=== PATIENT | male | born 2000 | race Caucasian/White ===

== ENCOUNTER 2023-08-27 15:53 | Emergency (ER) | payer MEDICAID, SELFPAY ==
[2023-08-27 15:54] VITALS: BP 129/79; PULSE 88; RESP 16; TEMP 36.7; O2SAT 98; BMI 24.7
--- NOTE | 2023-08-27 15:59 | XRR_ITS ---
PROCEDURE INFORMATION: Exam: XR Chest Exam date and time: 08/27/2023 4:15 PM Age: 23 years old Clinical indication: Patient HX: C/O chest pain; Additional info: Cp TECHNIQUE: Imaging protocol: Radiologic exam of the chest. Views: 1 view. COMPARISON: No relevant prior studies available. FINDINGS: Lungs: Unremarkable. No consolidation. Pleural spaces: Unremarkable. No pleural effusion. No pneumothorax. Heart/Mediastinum: Unremarkable. No cardiomegaly. Bones/joints: Unremarkable. XR/XR chest 1V portable [id number] IMPRESSION: No acute findings.
--- NOTE | 2023-08-27 15:59 | ECG_ITS ---
[facility] Test Date: 2023-08-27 Pat Name: Butch David Department: Room: Gender: Male Mysql Database Developer: : [id number] Requested By: Izabel Méndez Order Number: [id number] Diaz MD: Boubacar Pitts M.D. Measurements Intervals [place] Rate: 86 P: 66 [place]: 186 QRS: 22 QRSD: 98 T: 60 QT: 341 QTc: 409 Interpretive Statements SINUS RHYTHM LEFT ATRIAL ENLARGEMENT [-0.15mV P-WAVE IN V1/V2] POSSIBLE RIGHT VENTRICULAR CONDUCTION DELAY [RSR (QR) IN V1/V2] NONSPECIFIC ST & T-WAVE ABNORMALITY No previous ECG available for comparison Electronically Signed On 08-27-2023 23:32:37 CDT by Boubacar Pitts M.D. [id number] f
--- NOTE | 2023-08-27 17:19 | W.ED.CHESTPA ---
HPI - Chest Pain General: Chief Complaint: Chest Pain Stated Complaint: chest pains Time Seen by Provider: 08/27/23 17:18 Source: patient and family Mode of arrival: ambulatory Limitations: no limitations History of Present Illness: Patient is a 23-year-old male presents to ED today along with family for evaluation of chest pain. Patient states his chest pain began approximately a week ago and has been fairly constant since onset. He states he will have brief exacerbations of discomfort. Most of his pain is located to the left anterior chest. He feels like pain moves up into his neck and jaw. He has not found any specific alleviating or worsening factors to his discomfort. He does not complain of shortness of breath, difficulty breathing. No hemoptysis. No recent URI-like symptoms. Pain is not affected by eating or position. He has no known cardiac or pulmonary history. Denies any lower extremity calf pain or swelling. No IV drug use. MD complaint: chest pain Onset (ago): week(s) (one week) Timing of current episode: episodic (exacerbations) and constant Prior episodes: No Onset: during rest Pain location: left chest Pain radiation: jaw/teeth Severity: moderate Relieving factors: nothing Exacerbating factors: nothing Associated symptoms: Deny abdominal pain, dyspnea, fever(s), nausea, palpitations, syncope or vomiting Treatment prior to arrival: none Risk Factors: Coronary artery disease risk factors: none Thoracic aortic dissection risk factors: none Review of Systems Const: Denies: fever(s), chills, body aches, fatigue or malaise Eyes: Denies: change in vision or blurry vision Card: Reports: chest pain; Denies: palpitations, irregular heart rhythm, edema, swelling of feet/ankles, lightheadedness, syncope, pre-syncope, dyspnea on exertion, orthopnea, leg pain with exertion or acrocyanosis Resp: Denies: dyspnea, productive cough, non-productive cough, wheezing, stridor, pain on inspiration, change in phlegm color, hemoptysis or chest congestion GI: Denies: abdominal pain, nausea, vomiting, heartburn or diarrhea : Denies: flank pain, difficulty urinating or dysuria Musc: Denies: neck pain, back pain, extremity pain, extremity swelling or joint pain Skin/Breast: Denies: rash Neuro: Denies: headache(s), numbness in extremities, weakness in extremities, sensory changes or dizziness Physical Exam Const: COMMON NORMALS: no acute distress, average body habitus, patient oriented x3, no limitations, healthy appearing, alert and well nourished GENERAL APPEARANCE: cooperative ORIENTATION/CONSCIOUSNESS: Yes awake, Yes oriented to person, Yes oriented to place and Yes oriented to time HENMT: COMMON NORMALS: normocephalic and atraumatic HEAD & SCALP: normal to inspection, normocephalic and atraumatic FACE & SINUS: normal facial exam Neck/C-Spine: COMMON NORMALS: full ROM, no lymphadenopathy, supple and no meningeal signs Chest: COMMONS NORMALS: normal inspection of the chest OTHER: TTP L upper anterior chest Resp: COMMON NORMALS: normal respiratory effort and clear to auscultation bilaterally AUSCULTATION: clear to auscultation bilaterally Cardio: COMMON NORMALS: regular rate and regular rhythm RATE: regular rate RHYTHM: regular rhythm GI: COMMON NORMALS: Normal to inspection, nondistended, normoactive bowel sounds present, Soft to palpation, non-tender, No hepatosplenomegaly present and no masses PALPATION: Yes Soft to palpation and Yes No hepatosplenomegaly present : COMMON NORMALS: Yes no CVA tenderness BLADDER/KIDNEY EXAM: Yes no CVA tenderness Back/Pelvis: COMMON NORMALS: no CVA tenderness and thoracic and lumbar spine normal to inspection Extremity: COMMON NORMALS: normal to inspection GENERAL: Yes normal exam except as noted Neuro: JR COMA SCALE: document GCS findings [place] coma scale eye opening: Spontaneous [place] coma scale verbal response: Orientated [place] coma scale motor response: Obey commands Jr coma scale total score: 15 COMMON NORMALS: patient oriented x3 SENSORIUM/ORIENTATION: Yes alert, Yes oriented to person, Yes oriented to place and Yes oriented to time MENINGEAL SIGNS: Yes no meningeal signs Skin: COMMON NORMALS: no rashes or lesions noted GENERAL SKIN EXAM: no rashes or lesions noted Course Vital Signs: Vital signs: Vital Signs Temperature 98.0 F 08/27/23 15:54 Pulse Rate 80 08/27/23 18:00 Respiratory Rate 18 08/27/23 18:00 Blood Pressure 128/77 08/27/23 17:31 Pulse Oximetry 98 08/27/23 18:00 Oxygen Delivery Me thod Room Air 08/27/23 18:00 MDM - Chest Pain Medical Decision Making Patient is a 23-year-old male with no known past medical history here for chest pain over the past week or so. There is some degree of reproducibility to his left anterior chest wall. His EKG is nonischemic. CXR is unremarkable. Blood work today including a troponin and d-dimer both are normal. Discussed trial of NSAIDs at home. He states he has already sought medical evaluation for this over the past week and has been referred to cardiology. He can stick with this plan. Return precautions given. Lab Data 08/27/23 18:02 08/27/23 18:02 Radiology Impressions Chest X-Ray 08/27/23 15:59 IMPRESSION: No acute findings. Laboratory Results WBC 7.75 10^3/uL (3.29-11.43) 08/27/23 18: RBC 5.06 10^6/uL (3.85-5.65) 08/27/23 18: Hgb 15.50 g/dL (11.27-16.99) 08/27/23 18: Hct 43.7 % (37-53) 08/27/23 18: MCV 86.4 fl (82-101) 08/27/23 18:02 MCH 30.6 pg (27-33) 08/27/23 18: MCHC 35.5 g/dL (30-55) 08/27/23 18: RDW 11.9 % (12.1-15.1) L 08/27/23 18: Plt Count 229 10^3/cmm (157-399) 08/27/23 18: MPV 8.6 fL (7.4-10.4) 08/27/23 18:02 Neut % (Auto) 69.6 % 08/27/23 18:02 Lymph % (Auto) 18.7 % 08/27/23 18:02 Angelina % (Auto) 10.7 % 08/27/23 18: Eos % (Auto) 0.4 % 08/27/23 18: Baso % (Auto) 0.3 % 08/27/23 18: Neut # (Auto) 5.40 10^3/uL (1.8-7.7) 08/27/23 18: Lymph # (Auto) 1.5 10^3/uL (0.8-4.8) 08/27/23 18:02 Angelina # (Auto) 0.8 10^3/uL (0.2-0.9) 08/27/23 18:02 Eos # (Auto) 0.0 10^3/uL (0.0-0.8) 08/27/23 18:02 Baso # (Auto) 0.0 10^3/uL (0.0-0.1) 08/27/23 18:02 Nucleated RBC % (auto) 0 % 08/27/23 18: Nucleated RBCs # 0.0 /100WBC 08/27/23 18:02 D-Dimer 0.59 ug/mLFEU (0-0.59) 08/27/23 18:02 Sodium 138 mmol/L (136-145) 08/27/23 18:02 Potassium 4.0 mmol/L (3.5-5.1) 08/27/23 18:02 Chloride 102 mmol/L (98-107) 08/27/23 18: Carbon Dioxide 27 mmol/L (22-29) 08/27/23 18:02 Anion Gap 13.0 (5-19) 08/27/23 18:02 BUN 11 mg/dL (6-20) 08/27/23 18:02 Creatinine 0.8 mg/dL (0.7-1.2) 08/27/23 18:02 GFR Calculation 119.8 mL/min (90-130) 08/27/23 18:02 Glucose 89 mg/dL (65-115) 08/27/23 18:02 Calculated Osmolality 285 mOsm/kg (285-295) 08/27/23 18:02 Calcium 8.9 mg/dL (8.5-10.5) 08/27/23 18:02 Total Bilirubin 0.5 mg/dL (0.15-1.2) 08/27/23 18:02 AST 19 U/L (0-40) 08/27/23 18: ALT 31 U/L (0-41) 08/27/23 18:02 Alkaline Phosphatase 97 U/L (40-130) 08/27/23 18:02 Troponin T Baseline < 6 ng/L (0-15) 08/27/23 18: Total Protein 8.0 g/dL (6.6-8.7) 08/27/23 18:02 Albumin 4.5 g/dL (3.5-5.2) 08/27/23 18:02 Globulin 3.5 g/dL (1.3-4.6) 08/27/23 18:02 All radiology interpretation(s) finalized by discharge Discharge Plan Discharge Patient Disposition: Home Clinical Impression: Atypical chest pain Condition: Stable Prescriptions: No Action sulfamethoxazole-trimethoprim [Bactrim DS] 800-160 mg tablet 1 tab PO BID 5 Days Qty: 10 0RF Discharge Orders: Discharge ED (Routine); Ordered 08/27/23 Ordered By: Denise Willard Referrals: Mainor Casey, [facility] [Primary Care Provider] - Patient Instructions: Chest Pain - Chest Wall Coding Level of Care Code ED Counter Helper for Everett Shankar
[2023-08-27 17:31] VITALS: BP 128/77; PULSE 83; RESP 16; O2SAT 98
[2023-08-27 18:00] VITALS: PULSE 80; RESP 18; O2SAT 98
[2023-08-27 18:09] LABS: Basophils % 0.3 %; Eosinophils % 0.4 %; Hematocrit 43.7 % (37-53); Lymphocytes # 1.5 10^3/uL (0.8-4.8); Lymphocytes % 18.7 %; Mean Corpuscular HGB Conc 35.5 g/dL (30-55); Mean Corpuscular Hemoglobin 30.6 pg (27-33); Mean Corpuscular Volume 86.4 fl (82-101); Mean Platelet Volume 8.6 fL (7.4-10.4); Monocytes # 0.8 10^3/uL (0.2-0.9); Monocytes % 10.7 %; Neutrophils % 69.6 %; Nucleated Red Blood Cells % 0 %; Platelet Count 229 10^3/cmm (157-399); Red Blood Count 5.06 10^6/uL (3.85-5.65); Red Cell Distribution Width 11.9 % (12.1-15.1); White Blood Count 7.75 10^3/uL (3.29-11.43)
[2023-08-27 18:22] LABS: D Dimer 0.59 ug/mLFEU (0-0.59)
[2023-08-27 18:27] LABS: Troponin(5th) Baseline < 6 ng/L (0-15)
[2023-08-27 18:29] LABS: Alanine Aminotransferase 31 U/L (0-41); Albumin Level 4.5 g/dL (3.5-5.2); Alkaline Phosphatase 97 U/L (40-130); Aspartate Amino Transferase 19 U/L (0-40); Blood Urea Nitrogen 11 mg/dL (6-20); Calcium 8.9 mg/dL (8.5-10.5); Carbon Dioxide 27 mmol/L (22-29); Chloride 102 mmol/L (98-107); Creatinine Clr Calc Pharmacy 195.2763; Globulin 3.5 g/dL (1.3-4.6); Glomerular Filtration Rate 119.8 mL/min (90-130); Glucose 89 mg/dL (65-115); Osmolality Calculated 285 mOsm/kg (285-295); Sodium 138 mmol/L (136-145); Total Bilirubin 0.5 mg/dL (0.15-1.2)
[2023-08-27 18:54] VITALS: BP 122/65; PULSE 84; RESP 18; TEMP 36.7; O2SAT 99
== END 2023-08-27 18:55 | disposition home or self-care (01) ==
PROVIDERS: Emergency Provider Physician Assistant; PCP Nurse Practitioner
DX: R07.89 Other chest pain (principal)
CPT/HCPCS: 36415; 71045; 80053; 84484; 85025; 85378; 93005; 99285